=== PATIENT | male | born 1930 | race Caucasian/White ===

== ENCOUNTER 2016-03-28 06:35 | Outpatient (CLI) | payer MEDICARE, MEDICAID | END 2016-03-28 06:36 | disposition home or self-care (01) | DX: D64.9 Anemia, unspecified (principal) ==

== ENCOUNTER 2016-04-09 19:30 | Outpatient (CLI) | payer MEDICARE, MEDICAID | END 2016-04-09 19:31 | disposition home or self-care (01) | DX: J11.1 Influenza due to unidentified influenza virus with other respiratory manifestations (principal) ==

== ENCOUNTER 2016-05-01 16:30 | Outpatient (CLI) | payer MEDICAID, MEDICARE, OTHER | END 2016-05-01 16:31 | disposition home or self-care (01) | DX: D64.9 Anemia, unspecified (principal); F03.90 Unspecified dementia, unspecified severity, without behavioral disturbance, psychotic disturbance, mood disturbance, and anxiety; E53.8 Deficiency of other specified B group vitamins; N39.0 Urinary tract infection, site not specified ==

== ENCOUNTER 2016-05-27 19:40 | Outpatient (CLI) | payer MEDICARE, MEDICAID | END 2016-05-27 19:41 | disposition home or self-care (01) | DX: I10 Essential (primary) hypertension (principal); E63.9 Nutritional deficiency, unspecified; D64.9 Anemia, unspecified ==

== ENCOUNTER 2016-06-17 07:15 | Outpatient (CLI) | payer MEDICARE, MEDICAID | END 2016-06-17 07:16 | disposition home or self-care (01) | DX: D64.9 Anemia, unspecified (principal) ==

== ENCOUNTER 2016-07-05 16:35 | Outpatient (CLI) | payer MEDICARE, MEDICAID | END 2016-07-05 16:36 | disposition home or self-care (01) | DX: E88.9 Metabolic disorder, unspecified (principal); R68.89 Other general symptoms and signs; R03.0 Elevated blood-pressure reading, without diagnosis of hypertension; E61.2 Magnesium deficiency; R94.6 Abnormal results of thyroid function studies ==

== ENCOUNTER 2016-08-13 20:36 | Outpatient (CLI) | payer MEDICARE, MEDICAID ==
[2016-08-13 16:56] LABS: BASOPHILS # (AUTO) 0.1 10^3/uL (0.0-0.1); BASOPHILS % (AUTO) 0.8 %; EOSINOPHILS # (AUTO) 0.2 10^3/uL (0.0-0.7); EOSINOPHILS % (AUTO) 3.2 %; HCT - HEMATOCRIT 35.9 % (42.0-52.0); HGB - HEMOGLOBIN 11.7 g/dL (14.0-18.0); LYMPHOCYTES # (AUTO) 2.1 10^3/uL (1.5-3.5); LYMPHOCYTES % (AUTO) 30.6 %; MEAN CORPUSCULAR HEMOGLOBIN 29.2 pg (27.0-31.0); MEAN CORPUSCULAR HGB CONC 32.5 g/dL (32.0-36.0); MEAN CORPUSCULAR VOLUME 89.9 fL (80.0-94.0); MEAN PLATELET VOLUME 10.5 fL (7.4-11.4); MONOCYTES # (AUTO) 0.4 10^3/uL (0.0-1.0); MONOCYTES % (AUTO) 6.1 %; NEUTROPHILS # (AUTO) 4.1 10^3/uL (1.5-6.6); NEUTROPHILS % (AUTO) 59.3 %; RED CELL DISTRIBUTION WIDTH 13.2 % (12.0-15.0)
[2016-08-13 17:08] LABS: IRON 42 ug/dL (45-182); TOTAL IRON BINDING CAPACITY 216 ug/dL (250-450); TRANSFERRIN 154 mg/dL (180-329)
[2016-08-13 17:22] LABS: FERRITIN 104.1 ng/mL (23.9-336.2)
[2016-08-13 17:25] LABS: FOLATE 16.76 ng/mL (5.90 - >24.8)
== END 2016-08-13 20:37 | disposition home or self-care (01) ==
LOC: LAB.R 20:36
DX: D64.9 Anemia, unspecified (principal); D52.9 Folate deficiency anemia, unspecified
CPT/HCPCS: 82607; 82728; 82746; 83540; 84466; 85025

== ENCOUNTER 2016-11-20 08:00 | Outpatient (CLI) | payer MEDICARE, MEDICAID ==
[2016-11-21 00:39] LABS: IRON 42 ug/dL (45-182); TOTAL IRON BINDING CAPACITY 209 ug/dL (250-450); TRANSFERRIN 149 mg/dL (180-329)
== END 2016-11-20 08:01 | disposition home or self-care (01) ==
LOC: LAB.R 08:00
DX: D64.9 Anemia, unspecified (principal)
CPT/HCPCS: 83540; 84466

== ENCOUNTER 2016-12-09 08:00 | Outpatient (CLI) | payer MEDICARE, MEDICAID ==
[2016-12-09 12:43] LABS: BASOPHILS # (AUTO) 0.1 10^3/uL (0.0-0.1); BASOPHILS % (AUTO) 0.8 %; EOSINOPHILS # (AUTO) 0.1 10^3/uL (0.0-0.7); EOSINOPHILS % (AUTO) 1.9 %; HCT - HEMATOCRIT 34.9 % (42.0-52.0); HGB - HEMOGLOBIN 11.5 g/dL (14.0-18.0); LYMPHOCYTES # (AUTO) 2.2 10^3/uL (1.5-3.5); LYMPHOCYTES % (AUTO) 32.6 %; MEAN CORPUSCULAR HEMOGLOBIN 30.1 pg (27.0-31.0); MEAN CORPUSCULAR VOLUME 91.3 fL (80.0-94.0); MONOCYTES # (AUTO) 0.4 10^3/uL (0.0-1.0); MONOCYTES % (AUTO) 5.7 %; NEUTROPHILS # (AUTO) 3.9 10^3/uL (1.5-6.6); RED BLOOD COUNT 3.83 10^6/uL (4.70-6.10); RED CELL DISTRIBUTION WIDTH 13.7 % (12.0-15.0); UNCORRECTED WHITE BLOOD COUNT 6.6 x10^3/uL; WHITE BLOOD COUNT 6.6 x10^3/uL (4.8-10.8)
[2016-12-09 13:54] LABS: IRON 53 ug/dL (45-182); TOTAL IRON BINDING CAPACITY 192 ug/dL (250-450); TRANSFERRIN 137 mg/dL (180-329)
[2016-12-09 14:10] LABS: FERRITIN 127.7 ng/mL (23.9-336.2)
== END 2016-12-09 08:01 | disposition home or self-care (01) ==
LOC: LAB.R 08:00
DX: Q66.7 Congenital pes cavus (principal); D64.9 Anemia, unspecified; E63.9 Nutritional deficiency, unspecified; N17.9 Acute kidney failure, unspecified
CPT/HCPCS: 82607; 82728; 83540; 84466; 85025

== ENCOUNTER 2017-01-06 08:00 | Outpatient (CLI) | payer MEDICARE, MEDICAID ==
[2017-01-06 23:05] LABS: BASOPHILS # (AUTO) 0.1 10^3/uL (0.0-0.1); BASOPHILS % (AUTO) 1.2 %; EOSINOPHILS # (AUTO) 0.2 10^3/uL (0.0-0.7); EOSINOPHILS % (AUTO) 2.5 %; HCT - HEMATOCRIT 31.7 % (42.0-52.0); HGB - HEMOGLOBIN 10.8 g/dL (14.0-18.0); LYMPHOCYTES # (AUTO) 2.2 10^3/uL (1.5-3.5); LYMPHOCYTES % (AUTO) 33.1 %; MEAN CORPUSCULAR HEMOGLOBIN 30.3 pg (27.0-31.0); MEAN CORPUSCULAR HGB CONC 34.2 g/dL (32.0-36.0); MEAN CORPUSCULAR VOLUME 88.7 fL (80.0-94.0); MEAN PLATELET VOLUME 9.2 fL (7.4-11.4); MONOCYTES # (AUTO) 0.5 10^3/uL (0.0-1.0); MONOCYTES % (AUTO) 7.6 %; NEUTROPHILS # (AUTO) 3.6 10^3/uL (1.5-6.6); NEUTROPHILS % (AUTO) 55.6 %; NUCLEATED RED BLOOD CELLS AUTO 0.1 /100WBC; RED BLOOD COUNT 3.58 10^6/uL (4.70-6.10); RED CELL DISTRIBUTION WIDTH 13.3 % (12.0-15.0); UNCORRECTED WHITE BLOOD COUNT 6.5 x10^3/uL; WHITE BLOOD COUNT 6.5 x10^3/uL (4.8-10.8)
[2017-01-06 23:16] LABS: CALCIUM 8.8 mg/dL (8.5-10.3); CREATININE 1.3 mg/dL (0.6-1.2); POTASSIUM 4.3 mmol/L (3.5-5.0)
[2017-01-06 23:42] LABS: THYROID STIMULATING HORMONE 1.48 uIU/mL (0.34-5.60)
== END 2017-01-06 08:01 | disposition home or self-care (01) ==
LOC: LAB.R 08:00
DX: D64.9 Anemia, unspecified (principal); E63.9 Nutritional deficiency, unspecified
CPT/HCPCS: 80048; 82607; 84443; 85025

== ENCOUNTER 2017-02-04 08:00 | Outpatient (CLI) | payer MEDICARE, MEDICAID ==
[2017-02-04 16:56] LABS: BASOPHILS # (AUTO) 0.1 10^3/uL (0.0-0.1); BASOPHILS % (AUTO) 0.9 %; EOSINOPHILS # (AUTO) 0.1 10^3/uL (0.0-0.7); EOSINOPHILS % (AUTO) 1.7 %; HCT - HEMATOCRIT 34.6 % (42.0-52.0); HGB - HEMOGLOBIN 11.5 g/dL (14.0-18.0); LYMPHOCYTES % (AUTO) 32.5 %; MEAN CORPUSCULAR HGB CONC 33.1 g/dL (32.0-36.0); MEAN CORPUSCULAR VOLUME 90.7 fL (80.0-94.0); MEAN PLATELET VOLUME 9.9 fL (7.4-11.4); MONOCYTES # (AUTO) 0.5 10^3/uL (0.0-1.0); NEUTROPHILS # (AUTO) 3.5 10^3/uL (1.5-6.6); NEUTROPHILS % (AUTO) 56.9 %; NUCLEATED RED BLOOD CELLS AUTO 0.1 /100WBC; RED BLOOD COUNT 3.82 10^6/uL (4.70-6.10); RED CELL DISTRIBUTION WIDTH 13.4 % (12.0-15.0); UNCORRECTED WHITE BLOOD COUNT 6.2 x10^3/uL; WHITE BLOOD COUNT 6.2 x10^3/uL (4.8-10.8)
[2017-02-04 17:08] LABS: ALBUMIN/GLOBULIN RATIO 1.1 (1.0-2.2); BILIRUBIN,TOTAL 0.3 mg/dL (0.2-1.0); CALCIUM 9.1 mg/dL (8.5-10.3); CREATININE 1.2 mg/dL (0.6-1.2); POTASSIUM 4.6 mmol/L (3.5-5.0); TOTAL PROTEIN 6.7 g/dL (6.7-8.2)
== END 2017-02-04 08:01 | disposition home or self-care (01) ==
LOC: LAB.R 08:00
DX: R68.89 Other general symptoms and signs (principal); R94.6 Abnormal results of thyroid function studies; E55.9 Vitamin D deficiency, unspecified; R79.9 Abnormal finding of blood chemistry, unspecified; Q66.7 Congenital pes cavus
CPT/HCPCS: 80053; 82306; 84443; 85025

== ENCOUNTER 2017-02-08 14:00 | Outpatient (CLI) | payer MEDICARE, MEDICAID ==
[2017-02-08 11:19] LABS: IRON 41 ug/dL (45-182); TOTAL IRON BINDING CAPACITY 213 ug/dL (250-450); TRANSFERRIN 152 mg/dL (180-329)
[2017-02-08 12:12] LABS: FERRITIN 116.6 ng/mL (23.9-336.2)
[2017-02-08 12:16] LABS: FOLATE 22.7 ng/mL (5.90 - >24.8)
== END 2017-02-08 14:01 | disposition home or self-care (01) ==
LOC: LAB.R 14:00
DX: E61.1 Iron deficiency (principal); D50.9 Iron deficiency anemia, unspecified; D52.9 Folate deficiency anemia, unspecified; D51.9 Vitamin B12 deficiency anemia, unspecified
CPT/HCPCS: 82607; 82728; 82746; 83540; 84466

== ENCOUNTER 2017-03-18 08:00 | Outpatient (CLI) | payer MEDICARE, MEDICAID | END 2017-03-18 08:01 | LOC: LAB.R 08:00 | DX: I50.9 Heart failure, unspecified (principal) | CPT/HCPCS: 80048 ==

== ENCOUNTER 2017-03-30 08:00 | Outpatient (CLI) | payer MEDICARE, MEDICAID ==
[2017-03-30 21:27] LABS: CALCIUM 8.6 mg/dL (8.5-10.3)
== END 2017-03-30 08:01 | disposition home or self-care (01) ==
LOC: LAB.R 08:00
DX: I50.9 Heart failure, unspecified (principal)
CPT/HCPCS: 80048

== ENCOUNTER 2017-04-28 15:35 | Outpatient (CLI) | payer MEDICARE, MEDICAID ==
[2017-04-28 18:26] LABS: BASOPHILS # (AUTO) 0.1 10^3/uL (0.0-0.1); BASOPHILS % (AUTO) 0.6 %; EOSINOPHILS # (AUTO) 0.2 10^3/uL (0.0-0.7); EOSINOPHILS % (AUTO) 2.2 %; HGB - HEMOGLOBIN 11.3 g/dL (14.0-18.0); LYMPHOCYTES # (AUTO) 2.5 10^3/uL (1.5-3.5); LYMPHOCYTES % (AUTO) 31.5 %; MEAN CORPUSCULAR HEMOGLOBIN 30.2 pg (27.0-31.0); MEAN CORPUSCULAR HGB CONC 33.8 g/dL (32.0-36.0); MEAN CORPUSCULAR VOLUME 89.2 fL (80.0-94.0); MEAN PLATELET VOLUME 10.4 fL (7.4-11.4); MONOCYTES # (AUTO) 0.6 10^3/uL (0.0-1.0); MONOCYTES % (AUTO) 7.8 %; NEUTROPHILS # (AUTO) 4.5 10^3/uL (1.5-6.6); NEUTROPHILS % (AUTO) 57.9 %; RED BLOOD COUNT 3.75 10^6/uL (4.70-6.10); RED CELL DISTRIBUTION WIDTH 13.9 % (12.0-15.0); WHITE BLOOD COUNT 7.8 x10^3/uL (4.8-10.8)
[2017-04-28 18:39] LABS: ALBUMIN 3.3 g/dL (3.2-5.5); ALKALINE PHOSPHATASE 47 IU/L (42-121); ALT ALANINE AMINOTRANSFERASE 10 IU/L (10-60); AST ASPARTATE AMINOTRANSFERASE 22 IU/L (10-42); BILIRUBIN,TOTAL < 0.2 mg/dL (0.2-1.0); BUN - BLOOD UREA NITROGEN 33 mg/dL (6-20); CALCIUM 8.8 mg/dL (8.5-10.3); CARBON DIOXIDE - CO2 24 mmol/L (21-32); CHLORIDE 102 mmol/L (101-111); CREATININE 1.2 mg/dL (0.6-1.2); GFR - MDRD 57 (>89); GLUCOSE 102 mg/dL (70-100); SODIUM 137 mmol/L (135-145); TOTAL PROTEIN 6.5 g/dL (6.7-8.2)
[2017-04-28 18:41] LABS: PLATELET MORPHOLOGY PLATELET CLUMPING (NORMAL)
[2017-04-28 18:42] LABS: PLATELET ESTIMATE, MANUAL NORMAL (130-450,000) (NORMAL); RBC MORPHOLOGY (MULTIPLE) NORMAL APPEARANCE (NORMAL)
== END 2017-04-28 15:36 | disposition home or self-care (01) ==
LOC: LAB.R 15:35
DX: R79.89 Other specified abnormal findings of blood chemistry (principal); R68.89 Other general symptoms and signs; R94.6 Abnormal results of thyroid function studies
CPT/HCPCS: 80053; 84443; 85025

== ENCOUNTER 2017-05-27 17:10 | Outpatient (CLI) | payer MEDICARE, MEDICAID ==
[2017-05-27 17:35] LABS: BASOPHILS # (AUTO) 0.1 10^3/uL (0.0-0.1); BASOPHILS % (AUTO) 0.7 %; EOSINOPHILS # (AUTO) 0.2 10^3/uL (0.0-0.7); EOSINOPHILS % (AUTO) 2.1 %; HGB - HEMOGLOBIN 10.6 g/dL (14.0-18.0); LYMPHOCYTES # (AUTO) 2.3 10^3/uL (1.5-3.5); MEAN CORPUSCULAR HEMOGLOBIN 29.3 pg (27.0-31.0); MEAN CORPUSCULAR HGB CONC 32.8 g/dL (32.0-36.0); MEAN CORPUSCULAR VOLUME 89.5 fL (80.0-94.0); MEAN PLATELET VOLUME 8.9 fL (7.4-11.4); MONOCYTES # (AUTO) 0.6 10^3/uL (0.0-1.0); MONOCYTES % (AUTO) 7.6 %; NEUTROPHILS # (AUTO) 4.3 10^3/uL (1.5-6.6); NEUTROPHILS % (AUTO) 58.6 %; PLT - PLATELET COUNT 194 10^3/uL (130-450); RED BLOOD COUNT 3.62 10^6/uL (4.70-6.10); RED CELL DISTRIBUTION WIDTH 14.3 % (12.0-15.0); WHITE BLOOD COUNT 7.3 x10^3/uL (4.8-10.8)
[2017-05-27 18:49] LABS: % IRON SATURATION 15 % (20-50); IRON 28 ug/dL (45-182); TOTAL IRON BINDING CAPACITY 192 ug/dL (250-450); TRANSFERRIN 137 mg/dL (180-329)
== END 2017-05-27 23:59 | disposition home or self-care (01) ==
LOC: LAB.R 17:10
DX: D64.9 Anemia, unspecified (principal)
CPT/HCPCS: 82728; 83540; 84466; 85025

== ENCOUNTER 2017-06-11 10:37 | Outpatient (CLI) | payer MEDICARE, MEDICAID | END 2017-06-11 10:38 | disposition critical access hospital (66) | LOC: EMS 10:37 | PROVIDERS: ATTEND Surgery | DX: S01.01XA Laceration without foreign body of scalp, initial encounter (principal); W18.30XA Fall on same level, unspecified, initial encounter; Y92.129 Unspecified place in nursing home as the place of occurrence of the external cause | CPT/HCPCS: A0425; A0429 ==

== ENCOUNTER 2017-06-11 10:43 | Emergency (ER) | payer MEDICARE, MEDICAID ==
[2017-06-11] MEDS ORDERED: LIDOCAINE 1% 2 ML VIAL ONE (12:31)
--- NOTE | 2017-06-11 13:19 | XRAY Preliminary Report ---
Exam: XR CHEST 2 VIEW X-RAY IMPRESSION: Mild cardiomegaly. [facility] SITE ID: [id number]
--- NOTE | 2017-06-11 13:22 | XRAY Report ---
EXAM: CHEST RADIOGRAPHY EXAM DATE: 06/11/2017 12:59 PM. CLINICAL HISTORY: [place]. COMPARISON: 11/11/2014. TECHNIQUE: 2 views. FINDINGS: Lungs/Pleura: No focal opacities evident. No pleural effusion. No pneumothorax. Normal volumes. Mediastinum: Stable mild cardiomegaly. No tracheal shift. Interval removal of the left PICC line. Other: None. IMPRESSION: Mild cardiomegaly. [facility] Referring Provider Line: [phone] SITE ID: [id number]
--- NOTE | 2017-06-11 13:28 | ED Physician Documentation ---
PD HPI HEAD INJURY - Stated complaint Stated Complaint: GLF - Chief complaint Chief Complaint: Laceration - History obtained from History obtained from: Patient, EMS - History of Present Illness Mechanism of head injury: Fell Where head injury occurred: Home Timing - onset: Today Location of injury: Back Quality of pain: Pain Associated symptoms: No: LOC, AMS, Nausea / vomiting, Neck pain, Paresthesias, Seizures, Ear drainage, Nasal drainage Symptoms improve with: Rest Symptoms worsen with: Palpation, Movement Contributing factors: No: Anticoagulated Similar symptoms before: Diagnosis (head injury) Recently seen: Not recently seen - Additional information Additional information: 86-year-old male with advanced dementia who is on comfort measures only has fallen in a transfer from his wheelchair. He struck the back of his head and has an occipital laceration. Bleeding has been controlled with direct pressure. Review of Systems Unable to obtain: Confused, Dementia Constitutional: denies: Fever Respiratory: reports: Cough GI: denies: Nausea, Vomiting Skin: reports: Laceration (s) PD PAST MEDICAL HISTORY - Past Medical History Cardiovascular: Hypertension Respiratory: None Endocrine/Autoimmune: None GI: None : Benign prostate hypertrophy HEENT: None Psych: Anxiety Musculoskeletal: None Derm: None - Past Surgical History Past Surgical History: Yes General: Other Ortho: Hip replacement - Present Medications Home Medications: Ambulatory Orders Medication Instructions Recorded Confirmed Acetaminophen [Tylenol] 325 mg ORAL Q6HR PRN 10/11/14 09/09/16 Lisinopril 5 mg ORAL DAILY 10/11/14 09/09/16 Multivitamin [Daily Multiple 1 tab ORAL DAILY 10/11/14 09/09/16 Vitamin] Polyethylene Glycol 3350 [Miralax] 17 gm ORAL DAILY PRN 10/11/14 09/09/16 Cyanocobalamin (Vitamin B-12) 1,000 mcg IM ONCE 03/19/16 09/09/16 [Cyanocobalamin Injection] Ferrous Sulfate 325 mg PO BID 06/11/17 Sertraline [Zoloft] 50 mg PO DAILY 06/11/17 - Allergies Allergies/Adverse Reactions: Allergies Allergy/AdvReac Type Severity Reaction Status Date / Time No Known Drug Allergies Allergy Verified 09/24/14 17:14 - Social History Does the pt smoke?: No Smoking Status: Never smoker Does the pt drink ETOH?: No Does the pt have substance abuse?: No - Immunizations Immunizations are current?: Yes - POLST Patient has POLST: Yes PD ED PE NORMAL - Vitals Vital signs reviewed: Yes (Normal) - General General: No acute distress, Well developed/nourished - HEENT HEENT: PERRL, EOMI, Other (There is a 3cm occipital laceration on the right side ) - Neck Neck: Supple, no meningeal sign, No bony TTP - Cardiac Cardiac: RRR, No murmur - Respiratory Respiratory: No respiratory distress, Other (scattered wheezes and rhonchi) - Abdomen Abdomen: Soft, Non tender - Derm Derm: Normal color, Warm and dry, No rash - Extremities Extremities: No deformity, No edema - Neuro Neuro: No motor deficit, No sensory deficit, Normal speech Eye Opening: Spontaneous Motor: Obeys Commands Verbal: Confused GCS Score: 14 - Psych Psych: Normal mood, Normal affect Results - Vitals Vitals: Vital Signs - 24 hr 06/11/17 06/11/17 10:47 12:29 Temperature 37.1 C Heart Rate 70 84 Respiratory 18 18 Rate Blood Pressure 99/70 110/60 O2 Saturation 92 95 Oxygen O2 Source [] Room air O2 Source [] Room air O2 Source Room air - Rads (name of study) 2 veiw chest Radiology: Prelim report reviewed (Impression: Mild cardiomegaly.), EMP read indepedently, See rad report Procedures - Laceration (location) scalp Length in cm: 3 Wound type: Linear, Clean Neurovascular status: Sensory intact, Motor intact, Vascular intact Anesthesia: Lidocaine 1% Wound Preparation: Hibiclens, Irrigated copiously NS, Wound explored, To the base Skin layer closure: Vineet Other: Patient tolerated well, No complications, Neurovascular intact, Dressing applied, Tetanus UTD Complexity: Simple PD MEDICAL DECISION MAKING - ED course Complexity details: reviewed old records, reviewed results, re-evaluated patient , considered differential, d/w patient ED course: 86-year-old male with advanced dementia who is comfort measures only with orders not to transfer to the hospital for any reason has fallen and he has a laceration to his scalp. This is repaired with vineet. I did order an x-ray of the patient's chest because he had some rails on examination and found no significant pathology. I stopped workup at that point as the patient is comfort measures only. He does appear to have an isolated head injury and the laceration has been sutured and bleeding controlled. Departure - Departure Disposition: 01 Home, Self Care Clinical Impression: Scalp laceration Qualifiers: Encounter type: initial encounter Qualified Code(s): S01.01XA - Laceration without foreign body of scalp, initial encounter Instructions: ED Laceration Scalp Stitch Or Stap Follow-Up: Vi Mckee MD [Primary Care Provider] - Comments: Vineet out in 10 days
[2017-06-11 14:58] VITALS: BP 138/65
== END 2017-06-11 14:52 | disposition home or self-care (01) ==
LOC: EDUNIT# → ED 10:43
DX: S01.01XA Laceration without foreign body of scalp, initial encounter (principal); W05.0XXA Fall from non-moving wheelchair, initial encounter; Y92.009 Unspecified place in unspecified non-institutional (private) residence as the place of occurrence of the external cause; I10 Essential (primary) hypertension; F03.90 Unspecified dementia, unspecified severity, without behavioral disturbance, psychotic disturbance, mood disturbance, and anxiety; N40.0 Benign prostatic hyperplasia without lower urinary tract symptoms
CPT/HCPCS: 12002; 71046; 99283; 99284

== ENCOUNTER 2017-06-29 08:00 | Outpatient (CLI) | payer MEDICARE, MEDICAID ==
[2017-06-29 16:18] LABS: BASOPHILS # (AUTO) 0.1 10^3/uL (0.0-0.1); BASOPHILS % (AUTO) 0.8 %; EOSINOPHILS # (AUTO) 0.1 10^3/uL (0.0-0.7); EOSINOPHILS % (AUTO) 1.9 %; HGB - HEMOGLOBIN 10.9 g/dL (14.0-18.0); LYMPHOCYTES # (AUTO) 2.3 10^3/uL (1.5-3.5); LYMPHOCYTES % (AUTO) 29.5 %; MEAN CORPUSCULAR HEMOGLOBIN 29.1 pg (27.0-31.0); MEAN CORPUSCULAR HGB CONC 32.8 g/dL (32.0-36.0); MEAN CORPUSCULAR VOLUME 88.6 fL (80.0-94.0); MEAN PLATELET VOLUME 9.7 fL (7.4-11.4); MONOCYTES # (AUTO) 0.7 10^3/uL (0.0-1.0); MONOCYTES % (AUTO) 9.1 %; NEUTROPHILS # (AUTO) 4.5 10^3/uL (1.5-6.6); NEUTROPHILS % (AUTO) 58.7 %; PLT - PLATELET COUNT 210 10^3/uL (130-450); RED BLOOD COUNT 3.74 10^6/uL (4.70-6.10); RED CELL DISTRIBUTION WIDTH 13.7 % (12.0-15.0); WHITE BLOOD COUNT 7.7 x10^3/uL (4.8-10.8)
== END 2017-06-29 08:01 | disposition home or self-care (01) ==
LOC: LAB.R 08:00
DX: E27.9 Disorder of adrenal gland, unspecified (principal); D64.9 Anemia, unspecified
CPT/HCPCS: 82728; 85025

== ENCOUNTER 2017-12-31 08:00 | Outpatient (CLI) | payer MEDICARE, MEDICAID ==
[2017-12-31 11:58] LABS: CALCIUM 8.8 mg/dL (8.5-10.3)
[2017-12-31 13:21] LABS: FERRITIN 92.2 ng/mL (23.9-336.2)
== END 2017-12-31 08:01 | disposition home or self-care (01) ==
LOC: LAB.R 08:00
DX: D64.9 Anemia, unspecified (principal); N18.9 Chronic kidney disease, unspecified
CPT/HCPCS: 80048; 82607; 82728; 85025

== ENCOUNTER 2018-06-09 08:00 | Outpatient (CLI) | payer MEDICARE, MEDICAID ==
[2018-06-09 22:54] LABS: BASOPHILS % (AUTO) 0.6 %; EOSINOPHILS # (AUTO) 0.2 10^3/uL (0.0-0.7); EOSINOPHILS % (AUTO) 2.1 %; LYMPHOCYTES # (AUTO) 1.7 10^3/uL (1.5-3.5); LYMPHOCYTES % (AUTO) 22.4 %; MEAN CORPUSCULAR HEMOGLOBIN 29.1 pg (27.0-31.0); MEAN CORPUSCULAR HGB CONC 32.5 g/dL (32.0-36.0); MEAN CORPUSCULAR VOLUME 89.3 fL (80.0-94.0); MEAN PLATELET VOLUME 9.8 fL (7.4-11.4); MONOCYTES # (AUTO) 0.4 10^3/uL (0.0-1.0); MONOCYTES % (AUTO) 5.8 %; NEUTROPHILS # (AUTO) 5.2 10^3/uL (1.5-6.6); NEUTROPHILS % (AUTO) 69.1 %; PLT - PLATELET COUNT 233 10^3/uL (130-450); RED BLOOD COUNT 3.78 10^6/uL (4.70-6.10); RED CELL DISTRIBUTION WIDTH 14.4 % (12.0-15.0); WHITE BLOOD COUNT 7.5 x10^3/uL (4.8-10.8)
== END 2018-06-09 23:59 | disposition home or self-care (01) ==
LOC: LAB.R 08:00
PROVIDERS: ATTEND Family Medicine
DX: D64.9 Anemia, unspecified (principal); F03.90 Unspecified dementia, unspecified severity, without behavioral disturbance, psychotic disturbance, mood disturbance, and anxiety; I10 Essential (primary) hypertension
CPT/HCPCS: 80053; 82607; 84443; 85025

== ENCOUNTER 2018-06-10 08:00 | Outpatient (CLI) | payer MEDICARE, MEDICAID ==
[2018-06-10 16:06] LABS: ALBUMIN 3.1 g/dL (3.2-5.5); ALBUMIN/GLOBULIN RATIO 1.1 (1.0-2.2); BILIRUBIN,TOTAL 0.5 mg/dL (0.2-1.0); CALCIUM 8.4 mg/dL (8.5-10.3); CREATININE 1.3 mg/dL (0.6-1.2)
[2018-06-10 16:20] LABS: THYROID STIMULATING HORMONE 1.27 uIU/mL (0.34-5.60)
== END 2018-06-10 23:59 | disposition home or self-care (01) ==
LOC: LAB.R 08:00
DX: D64.9 Anemia, unspecified (principal); F03.90 Unspecified dementia, unspecified severity, without behavioral disturbance, psychotic disturbance, mood disturbance, and anxiety; I10 Essential (primary) hypertension
CPT/HCPCS: 80053; 82607; 84443

== ENCOUNTER 2018-10-07 08:00 | Outpatient (CLI) | payer MEDICARE, MEDICAID ==
[2018-10-07 17:27] LABS: BILIRUBIN,URINE NEGATIVE (NEGATIVE); GLUCOSE, URINE (UA) NEGATIVE (NEGATIVE); KETONES,URINE (UA) NEGATIVE (NEGATIVE); LEUKOCYTE ESTERASE, URINE NEGATIVE (NEGATIVE); NITRITE,URINE POSITIVE (NEGATIVE); OCCULT BLOOD,URINE NEGATIVE (NEGATIVE); PROTEIN,URINE NEGATIVE (NEGATIVE); UROBILINOGEN,URINE 0.2 (NORMAL) E.U./dL (NORMAL)
[2018-10-07 17:35] LABS: CLARITY,URINE HAZY (CLEAR); RBC,URINE None Seen /HPF (0-5)
[2018-10-07 17:36] LABS: BACTERIA,URINE Many /HPF (None Seen); MUCUS,URINE Few Strands; SQUAMOUS EPITHELIAL CELL,UR RARE Squamous (<= Few)
== END 2018-10-07 23:59 | disposition home or self-care (01) ==
LOC: LAB.R 08:00
DX: N39.0 Urinary tract infection, site not specified (principal)
CPT/HCPCS: 81001; 81003; 87077; 87086; 87181

== ENCOUNTER 2018-10-07 08:00 | Outpatient (CLI) | payer MEDICARE, MEDICAID ==
[2018-10-08 00:21] LABS: BASOPHILS % (AUTO) 0.2 %; EOSINOPHILS % (AUTO) 0.2 %; HGB - HEMOGLOBIN 8.4 g/dL (14.0-18.0); LYMPHOCYTES # (AUTO) 1.8 10^3/uL (1.5-3.5); LYMPHOCYTES % (AUTO) 9.6 %; MEAN CORPUSCULAR HEMOGLOBIN 29.4 pg (27.0-31.0); MEAN CORPUSCULAR HGB CONC 30.9 g/dL (32.0-36.0); MEAN CORPUSCULAR VOLUME 95.1 fL (80.0-94.0); MEAN PLATELET VOLUME 12.8 fL (7.4-11.4); MONOCYTES # (AUTO) 1.1 10^3/uL (0.0-1.0); MONOCYTES % (AUTO) 6.1 %; NEUTROPHILS % (AUTO) 82.4 %; PLT - PLATELET COUNT 77 10^3/uL (130-450); RED BLOOD COUNT 2.86 10^6/uL (4.70-6.10); RED CELL DISTRIBUTION WIDTH 13.8 % (12.0-15.0); WHITE BLOOD COUNT 18.2 x10^3/uL (4.8-10.8)
== END 2018-10-07 23:59 | disposition home or self-care (01) ==
LOC: LAB.R 08:00
DX: D64.9 Anemia, unspecified (principal)
CPT/HCPCS: 85025

== ENCOUNTER 2018-10-17 08:00 | Outpatient (CLI) | payer MEDICARE, MEDICAID ==
[2018-10-17 01:54] LABS: BASOPHILS % (AUTO) 0.5 %; EOSINOPHILS # (AUTO) 0.2 10^3/uL (0.0-0.7); HGB - HEMOGLOBIN 9.6 g/dL (14.0-18.0); LYMPHOCYTES # (AUTO) 1.7 10^3/uL (1.5-3.5); LYMPHOCYTES % (AUTO) 20.1 %; MEAN CORPUSCULAR HEMOGLOBIN 29.6 pg (27.0-31.0); MEAN CORPUSCULAR HGB CONC 30.7 g/dL (32.0-36.0); MEAN CORPUSCULAR VOLUME 96.6 fL (80.0-94.0); MEAN PLATELET VOLUME 11.9 fL (7.4-11.4); MONOCYTES # (AUTO) 0.5 10^3/uL (0.0-1.0); MONOCYTES % (AUTO) 6.3 %; NEUTROPHILS % (AUTO) 69.7 %; PLT - PLATELET COUNT 49 10^3/uL (130-450); RED BLOOD COUNT 3.24 10^6/uL (4.70-6.10); RED CELL DISTRIBUTION WIDTH 13.4 % (12.0-15.0); WHITE BLOOD COUNT 8.6 x10^3/uL (4.8-10.8)
[2018-10-17 11:56] LABS: ALBUMIN 3.1 g/dL (3.2-5.5); ALBUMIN/GLOBULIN RATIO 0.9 (1.0-2.2); BILIRUBIN,TOTAL 0.5 mg/dL (0.2-1.0); CREATININE 1.2 mg/dL (0.6-1.2); TOTAL PROTEIN 6.4 g/dL (6.7-8.2)
== END 2018-10-17 23:59 | disposition home or self-care (01) ==
LOC: LAB.R 08:00
PROVIDERS: ATTEND Internal Medicine
DX: D72.829 Elevated white blood cell count, unspecified (principal); D69.59 Other secondary thrombocytopenia
CPT/HCPCS: 80053; 85025

== ENCOUNTER → 2018-10-17 | Outpatient (CLI) | payer MEDICARE, MEDICAID ==
[2018-10-17 11:56] LABS: ALBUMIN 3.1 g/dL (3.2-5.5); ALBUMIN/GLOBULIN RATIO 0.9 (1.0-2.2); BILIRUBIN,TOTAL 0.5 mg/dL (0.2-1.0); CREATININE 1.2 mg/dL (0.6-1.2); TOTAL PROTEIN 6.4 g/dL (6.7-8.2)
== END ==
LOC: LAB.R 08:00
DX: D72.829 Elevated white blood cell count, unspecified (principal); D69.6 Thrombocytopenia, unspecified
CPT/HCPCS: 80053

== ENCOUNTER 2018-11-03 11:35 | Outpatient (CLI) | payer MEDICARE, MEDICAID | END 2018-11-03 11:36 | disposition critical access hospital (66) | LOC: EMS 11:35 | PROVIDERS: ATTEND Surgery | DX: S09.90XA Unspecified injury of head, initial encounter (principal); X58.XXXA Exposure to other specified factors, initial encounter | CPT/HCPCS: A0425; A0429 ==

== ENCOUNTER 2018-11-03 11:42 | Emergency (ER) | payer MEDICARE, MEDICAID ==
--- NOTE | 2018-11-03 12:15 | ED Physician Documentation ---
PD HPI HEAD INJURY - Stated complaint Stated Complaint: HEMATOMA - Chief complaint Chief Complaint: Trauma Hd/Nk - History obtained from History obtained from: EMS, Caregiver - History of Present Illness Mechanism of head injury: Other (87-year-old gentleman with advanced dementia presents from a correction. They found him with a small hematoma on his right forehead. He is in his usual state of health and had his cognitive baseline which is basically uncooperative and minimally verbal. It is unclear how this hematoma happened. Review of the chart shows very clear care goals with comfort measures only/DNR. It looks like he has a guardianship agency which I paged after my evaluation to discuss.) Review of Systems Unable to obtain: Dementia PD PAST MEDICAL HISTORY - Past Medical History Cardiovascular: Hypertension Respiratory: None Endocrine/Autoimmune: None GI: None : Benign prostate hypertrophy HEENT: None Psych: Anxiety Musculoskeletal: None Derm: None - Past Surgical History Past Surgical History: Yes General: Other Ortho: Hip replacement - Present Medications Home Medications: Ambulatory Orders Medication Instructions Recorded Confirmed Acetaminophen [Tylenol] 325 mg ORAL Q6HR PRN 10/11/14 09/09/16 Lisinopril 5 mg ORAL DAILY 10/11/14 09/09/16 Multivitamin [Daily Multiple 1 tab ORAL DAILY 10/11/14 09/09/16 Vitamin] Polyethylene Glycol 3350 [Miralax] 17 gm ORAL DAILY PRN 10/11/14 09/09/16 Cyanocobalamin (Vitamin B-12) 1,000 mcg IM ONCE 03/19/16 09/09/16 [Cyanocobalamin Injection] Ferrous Sulfate 325 mg PO BID 06/11/17 Sertraline [Zoloft] 50 mg PO DAILY 06/11/17 - Allergies Allergies/Adverse Reactions: Allergies Allergy/AdvReac Type Severity Reaction Status Date / Time No Known Drug Allergies Allergy Verified 11/03/18 11:50 - Social History Does the pt smoke?: No Smoking Status: Never smoker Does the pt drink ETOH?: No Does the pt have substance abuse?: No - Immunizations Immunizations are current?: Yes - POLST Patient has POLST: Yes PD ED PE NORMAL - Vitals Vital signs reviewed: Yes - General General: Other (He is alert and oriented to person. He is kind of uncooperative generally. There is a 3 cm hematoma on the right side of the forehead.) - Neck Neck: No bony TTP - Neuro Eye Opening: To Voice Motor: Obeys Commands Verbal: Confused GCS Score: 13 Results - Vitals Vitals: Vital Signs - 24 hr 11/03/18 11:45 Temperature 36.9 C Heart Rate 55 L Respiratory 16 Rate Blood Pressure 106/59 L O2 Saturation 96 Oxygen O2 Source [Without Activity] Room air O2 Source [With Activity] Room air O2 Source Room air PD MEDICAL DECISION MAKING - ED course ED course: This is an 87-year-old gentleman with advanced dementia and documented goals of care with comfort care only sent in from a correction with possible head injury. His exam is at his baseline per the caregiver. I clarified this with Ann from [employer] [facility] who agreed that no interventions would be done based on diagnostics and therefore we agreed no diagnostics were necessary. Departure - Departure Disposition: 01 Home, Self Care Clinical Impression: Advanced directives, counseling/discussion Head injury Qualifiers: Encounter type: initial encounter Qualified Code(s): S09.90XA - Unspecified injury of head, initial encounter Condition: Stable Comments: I discussed the case with Ann from [employer] [facility], his [employer]. She agreed that his goals of care would be against any intervention based on diagnostics and therefore no diagnostics were done.
[2018-11-03 12:43] VITALS: BP 113/79
== END 2018-11-03 13:49 | disposition home or self-care (01) ==
LOC: EDUNIT# → ED 11:42
DX: S09.90XA Unspecified injury of head, initial encounter (principal); X58.XXXA Exposure to other specified factors, initial encounter; I10 Essential (primary) hypertension; F03.90 Unspecified dementia, unspecified severity, without behavioral disturbance, psychotic disturbance, mood disturbance, and anxiety; Z66 Do not resuscitate
CPT/HCPCS: 99281; 99283